=== PATIENT | female | born 1965 | race Asian ===

== ENCOUNTER 2017-09-16 19:14 | Emergency (ER) | payer OTHER ==
[~2017-09-16] VITALS: Ht 152.4 cm; Wt 46.7 kg
--- NOTE | 2017-09-16 21:00 | NUR ---
To room 2A. Patient AAO.
--- NOTE | 2017-09-16 21:39 | NUR ---
Seen and evaluated by Dr. Dumas.
[2017-09-16] MEDS ORDERED: DIAZEPAM 2 MG TABLET PO ONE (22:00)
[2017-09-16] MEDS ORDERED: IV NORMAL SALINE 1000 ML BAG IV ONE (22:00)
[2017-09-16 22:18] LABS: BASOPHILS # (AUTO) 0.1 K/uL (0.0-8.0); BASOPHILS % (AUTO) 0.8 % (0.0-2.0); EOSINOPHILS # (AUTO) 0.1 K/uL (0.0-0.7); EOSINOPHILS % (AUTO) 1.2 % (0.0-7.0); HEMOGLOBIN 13.3 g/dL (10.9-14.3); LYMPHOCYTES # (AUTO) 2.4 K/uL (20.0-40.0); LYMPHOCYTES % (AUTO) 25.6 % (20.5-51.5); MEAN CORPUSCULAR HEMOGLOBIN 31.6 uug (24.7-32.8); MEAN CORPUSCULAR HGB CONC 34 g/dL (32.3-35.6); MONOCYTES # (AUTO) 0.5 K/uL (2.0-10.0); MONOCYTES % (AUTO) 5.5 % (0.0-11.0); NEUTROPHILS # (AUTO) 6.2 K/uL (1.8-8.9); NEUTROPHILS % (AUTO) 66.9 % (38.5-71.5); PLATELET COUNT (AUTO) 258 K/uL (179-408); RED BLOOD CELL COUNT(AUTO) 4.19 MIL/uL (3.63-4.92); WHITE BLOOD COUNT (AUTO) 9.3 K/uL (3.8-11.8)
[2017-09-16] MEDS ORDERED: DIAZEPAM 2 MG TABLET ONE (22:24)
[2017-09-16 22:27] LABS: CREATININE 0.8 mg/dL (0.6-1.3); POTASSIUM 3.7 mmol/L (3.5-5.1)
[2017-09-16 22:39] LABS: BILIRUBIN,DIRECT 0.1 mg/dL (0.0-0.2); BILIRUBIN,TOTAL 0.5 mg/dL (0.2-1.0); TOTAL PROTEIN, SERUM 7.9 g/dL (6.4-8.2)
[2017-09-16] MEDS ORDERED: IOHEXOL 350 100 ML INFUS..BTL ONE (22:46)
[2017-09-16] MEDS ORDERED: NORMAL SALINE FLUSH 10 ML DISP.SYRIN ONE (22:47)
[2017-09-16] MEDS ORDERED: IV NORMAL SALINE 250 ML IV ONE (22:47)
[2017-09-16] MEDS ORDERED: SWABABLE VALVE TRANSFER SET EA MC ONE (22:47)
--- NOTE | 2017-09-16 22:53 | NUR ---
Patient refused CTA; informed.
[2017-09-16] MEDS ORDERED: ONDANSETRON IV *ER 4 MG/2 ML VIAL IV ONE (23:00)
[2017-09-16] MEDS ORDERED: LORAZEPAM 2 MG/1 ML VIAL IV ONE (23:00)
[2017-09-16] MEDS ORDERED: ONDANSETRON 4 MG/2 ML VIAL ONE (23:13)
[2017-09-16] MEDS ORDERED: LORAZEPAM 2 MG/1 ML VIAL ONE (23:13)
--- NOTE | 2017-09-16 23:14 | NUR ---
Patient anxious and asking lots of questions re: CT, CTA and contrast. Dr. Dumas at bedside; discussed plan of care with patient and family. Medicated with Ativan and Zofran IV as per MD's order.
--- NOTE | 2017-09-16 23:45 | NUR ---
Still refusing further CTs. MD informed.
--- NOTE | 2017-09-17 00:25 | NUR ---
Patient discharged to home in stable conditon. Written and verbal after care instructions given to and patient. Both verbalized understanding of instructions.
[2017-09-17 00:30] VITALS: BP 115/70
== END 2017-09-17 00:25 | disposition home or self-care (01) ==
LOC: ER 19:17
DX: F41.9 Anxiety disorder, unspecified (principal); I10 Essential (primary) hypertension; E78.5 Hyperlipidemia, unspecified; Z86.011 Personal history of benign neoplasm of the brain
CPT/HCPCS: 36415; 71045; 80048; 80076; 83880; 84484; 85025; 85379; 85730; 93005; 96374; 96375; 99285; A4663; J2060; J2405; J3490; J7030; 70030-TC; J7050; Q9967